=== PATIENT | female | born 1975 | race Caucasian/White ===

== ENCOUNTER 2016-11-14 02:54 | Emergency (ER) | payer SELFPAY ==
[~2016-11-14] VITALS: Ht 165.1 cm; Wt 113.4 kg
[~2016-11-14 02:54] MED LIST: CITA20TA4 PO; DILT120C54; HYDR-2890 PO; LISI20TA PO; LORA0.5T PO; MTP25TSR PO; RNT150T
--- OUTSIDE RECORDS SUMMARY | 2016-11-14 03:03 | XMS REPORT | Continuity of Care Document ---
Author Author [facility] Organization [facility] Address Unknown Phone Unavailable Allergies Active Description Code Type Severity Reaction Onset Reported/Identified Relationship to Patient Clinical Status Yes Lisinopril oral tablet 20 mg Drug Allergy 02/20/2011 Yes hydrochlorothiazide 25 mg tablet Drug Allergy 04/14/2012 Yes hydrochlorothiazide 25 mg tablet Drug Allergy N/A N/A 04/14/2012 Medications Problems Date Dx Coded Attending Type Code Diagnosis Diagnosed By 07/30/2009 034.0 Streptococcal Sore Throat 07/30/2009 KATHARINE COOLEY DO 034.0 Streptococcal Sore Throat 07/30/2009 KATHARINE COOLEY DO 034.0 Streptococcal Sore Throat 07/30/2009 034.0 Streptococcal Sore Throat 07/30/2009 KATHARINE COOLEY DO K 034.0 Streptococcal Sore Throat 02/28/2010 278.01 OBESITY MORBID 02/28/2010 300.00 ANXIETY UNSPEC 02/28/2010 564.1 IRRITABLE BOWEL SYNDROME 02/28/2010 HETAL COOLEY DOA K 278.01 OBESITY MORBID 02/28/2010 HETAL COOLEY DOA K 300.00 ANXIETY UNSPEC 02/28/2010 HETAL COOLEY DOA K 564.1 IRRITABLE BOWEL SYNDROME 02/28/2010 HETAL COOLEY DOA K 278.01 OBESITY MORBID 02/28/2010 HETAL COOLEY DOA K 300.00 ANXIETY UNSPEC 02/28/2010 HETAL COOLEY DOA K 564.1 IRRITABLE BOWEL SYNDROME 02/28/2010 278.01 OBESITY MORBID 02/28/2010 300.00 ANXIETY UNSPEC 02/28/2010 564.1 IRRITABLE BOWEL SYNDROME 02/28/2010 HETAL COOLEY DOA K 278.01 OBESITY MORBID 02/28/2010 HETAL COOLEY DOA K 300.00 ANXIETY UNSPEC 02/28/2010 HETAL COOLEY DOA K 564.1 IRRITABLE BOWEL SYNDROME 03/21/2010 401.1 ESSENTIAL HYPERTENSION BENIGN 03/21/2010 790.29 PREDIABETES (IMPAIRED GLUCOSE TOLERANCE) 03/21/2010 V72.31 Pelvic Exam (internal) 03/21/2010 KATHARINE COOLEY DO K 401.1 ESSENTIAL HYPERTENSION BENIGN 03/21/2010 KATHARINE COOLEY DO K 790.29 PREDIABETES (IMPAIRED GLUCOSE TOLERANCE) 03/21/2010 KATHARINE COOLEY DO K V72.31 Pelvic Exam (internal) 03/21/2010 HETAL COOLEY DOA K 401.1 ESSENTIAL HYPERTENSION BENIGN 03/21/2010 KATHARINE COOLEY DO K 790.29 PREDIABETES (IMPAIRED GLUCOSE TOLERANCE) 03/21/2010 KATHARINE COOLEY DO K V72.31 Pelvic Exam (internal) 03/21/2010 401.1 ESSENTIAL HYPERTENSION BENIGN 03/21/2010 790.29 PREDIABETES (IMPAIRED GLUCOSE TOLERANCE) 03/21/2010 V72.31 Pelvic Exam (internal) 03/21/2010 KATHARINE COOLEY DO K 401.1 ESSENTIAL HYPERTENSION BENIGN 03/21/2010 KATHARINE COOLEY DO K 790.29 PREDIABETES (IMPAIRED GLUCOSE TOLERANCE) 03/21/2010 KATHARINE COOLEY DO V72.31 Pelvic Exam (internal) 08/07/2010 427.81 SINOATRIAL NODE DYSFUNCTION 08/07/2010 KATHARINE COOLEY DO 427.81 SINOATRIAL NODE DYSFUNCTION 08/07/2010 KATHARINE COOLEY DO 427.81 SINOATRIAL NODE DYSFUNCTION 08/07/2010 427.81 SINOATRIAL NODE DYSFUNCTION 08/07/2010 KATHARINE COOLEY DO K 427.81 SINOATRIAL NODE DYSFUNCTION 01/13/2011 796.2 Elevated Blood Pressure Reading Without Diagnosis Of Hypertension 01/13/2011 KATHARINE COOLEY DO 796.2 Elevated Blood Pressure Reading Without Diagnosis Of Hypertension 01/13/2011 KATHARINE COOLEY DO K 796.2 Elevated Blood Pressure Reading Without Diagnosis Of Hypertension 01/13/2011 796.2 Elevated Blood Pressure Reading Without Diagnosis Of Hypertension 01/13/2011 KATHARINE COOLEY DO K 796.2 Elevated Blood Pressure Reading Without Diagnosis Of Hypertension 01/22/2011 530.81 GERD 01/22/2011 786.09 RESPIRATORY ABNORMALITY OTHER 01/22/2011 786.2 COUGH 01/22/2011 786.50 CHEST PAIN 01/22/2011 KATHARINE COOLYE DO K 530.81 GERD 01/22/2011 KATHARINE COOLEY DO K 786.09 RESPIRATORY ABNORMALITY OTHER 01/22/2011 COOLEY DO, KATHARINE K 786.2 COUGH 01/22/2011 COOLEY DO, KATHARINE K 786.50 CHEST PAIN 01/22/2011 COOLEY DO, KATHARINE K 530.81 GERD 01/22/2011 COOLEY DO, KATHARINE K 786.09 RESPIRATORY ABNORMALITY OTHER 01/22/2011 COOLEY DO, KATHARINE K 786.2 COUGH 01/22/2011 COOLEY DO, KATHARINE K 786.50 CHEST PAIN 01/22/2011 530.81 GERD 01/22/2011 786.09 RESPIRATORY ABNORMALITY OTHER 01/22/2011 786.2 COUGH 01/22/2011 786.50 CHEST PAIN 01/22/2011 COOLEY DO, KATHARINE K 530.81 GERD 01/22/2011 COOLEY DO, KATHARINE K 786.09 RESPIRATORY ABNORMALITY OTHER 01/22/2011 COOLEY DO, KATHARINE K 786.2 COUGH 01/22/2011 COOLEY DO, KATHARINE K 786.50 CHEST PAIN 03/19/2011 428.0 CONGESTIVE HEART FAILURE UNSPECIFIED 03/19/2011 COOLEY DO KATHARINE K 428.0 CONGESTIVE HEART FAILURE UNSPECIFIED 03/19/2011 YASIR VALENCIA KATHARINE K 428.0 CONGESTIVE HEART FAILURE UNSPECIFIED 03/19/2011 428.0 CONGESTIVE HEART FAILURE UNSPECIFIED 03/19/2011 COOLEY DO, KATHARINE K 428.0 CONGESTIVE HEART FAILURE UNSPECIFIED 07/17/2011 V81.1 HYPERTENSION SCREENING 07/17/2011 HETAL COOLEY DOA K V81.1 HYPERTENSION SCREENING 07/17/2011 YASIR VALENCIA KATHARINE K V81.1 HYPERTENSION SCREENING 07/17/2011 V81.1 HYPERTENSION SCREENING 07/17/2011 YASIR VALENCIA KATHARINE K V81.1 HYPERTENSION SCREENING 09/22/2012 HETAL COOLEY DOA K V18.11 FAM HX MEN SYNDROME 01/19/2013 YASIR VALENICA KATHARINE K V04.81 FLU SHOT Procedures Code Description [place] [address] ROUTINE VENIPUNCTURE 06/03/2012 82227 A1C (IN-HOUSE) 75666 CMP 06/03/2012 50600 LIPID PANEL 06/03 5924498 GFR CALC (RESULT ONLY) 06/03/2012 84447 VITAMIN D 25-HYDROXY (D2,D3, TOTAL) 06/04/2012 89781 US BREAST ULTRASOUND, LEFT 06/04/2012 2000F BLOOD PRESSURE CHECK 01/19/2013 96780 US BREAST ULTRASOUND, LEFT 01/19/2013 Results Encounters ACCT No. Visit Date/Time Discharge Status Pt. Type Provider Facility Loc./Unit Complaint [id number] 09/03/2012 09:11:00 2012 23:59:59 CLS Outpatient
[2016-11-14] MEDS ORDERED: TETANUS,DIPTH,PERTUSS P/F (BOOSTRIX) 0.5 ML VIAL IM ONE (03:15)
[2016-11-14] MEDS ORDERED: TRIM/SULFAMETH 160/800 (SEPTRA DS) TAB PO ONE (03:15)
[2016-11-14] MEDS ORDERED: SULF1TAB35 PO (03:19)
--- NOTE | 2016-11-14 03:19 | ED General ---
General Chief Complaint: Skin/Wound Problems Stated Complaint: RT ELBOW INFECTION,POSS BUG BITE Allergies and Home Medications Allergies Coded Allergies: NKANo Known Allergies (Unverified Allergy, Mild, 02/26/09) Home Medications Lisinopril 20 Mg Tablet, 1 EACH PO DAILY, #30 Ref 0 Prescribed by: CELINA CARDONA on 01/21/11 0802 Metoprolol Succinate 25 Mg Tab, 25 MG PO DAILY, (Reported) Past Hegchwr-Tvogma-Oryldt Hx Patient Social History Alcohol Use: Occasionally Uses Recreational Drug Use: No Smoking Status: Never a Smoker Recent Foreign Travel: No Contact w/Someone Who Travel: No Surgeries HX Surgeries: Yes Surgeries: Section Respiratory Hx Respiratory Disorders: No Cardiovascular Hx Cardiac Disorders: Yes Cardiac Disorders: Hypertension Neurological Hx Neurological Disorders: No Genitourinary Hx Genitourinary Disorders: No Musculoskeletal Hx Musculoskeletal Disorders: No Endocrine Hx Endocrine Disorders: No HEENT HX ENT Disorders: No Cancer Hx Cancer: No Psychosocial Hx Psychiatric Problems: Yes Behavioral Health Disorders: Anxiety Physical Exam Vital Signs Capillary Refill : Progress/Results/Core Measures Results/Orders My Orders Orders - GIANCARLO ARMSTRONG MD Sulfamethoxazole/Trimet Ds Tab (Bactrim (11/14/16 03:15) Dipht,Pertuss(Acell),Tet Adult (Boostrix (11/14/16 03:15) Departure Impression Impression: Primary Impression: Spider bite Qualified Codes: T63.301A - Toxic effect of unspecified spider venom, accidental (unintentional), initial encounter Disposition: 01 HOME, SELF-CARE Condition: Improved Departure-Patient Inst. Decision time for Depature: 03:10 Referrals: [facility] (PCP/Family) Primary Care Physician Patient Instructions: Spider Bites Add. Discharge Instructions: Complete your antibiotics as prescribed. Do not place anything on the wound topically. You may cover with a Band-Aid if necessary. Return to care if symptoms worsen or are not improving over the next couple of weeks. All discharge instructions reviewed with patient and/or family. Voiced understanding. Scripts Sulfamethoxazole/Trimethoprim (Bactrim Ds Tablet) 1 Each Tablet 1 EACH PO BID, #14 TAB Prov: GIANCARLO ARMSTRONG MD 11/14/16 GIANCARLO ARMSTRONG MD Nov 14, 2016 03:19
[2016-11-14 03:25] VITALS: BP 142/91
== END 2016-11-14 03:25 | disposition home or self-care (01) ==
LOC: EDUNIT# 02:54 → ER 02:59
DX: S50.361A Insect bite (nonvenomous) of right elbow, initial encounter (principal); I10 Essential (primary) hypertension; F41.9 Anxiety disorder, unspecified; W57.XXXA Bitten or stung by nonvenomous insect and other nonvenomous arthropods, initial encounter
CPT/HCPCS: 90715; 99284

== ENCOUNTER 2017-12-06 12:35 | Emergency (ER) | payer SELFPAY ==
[~2017-12-06] VITALS: Ht 165.1 cm; Wt 117.9 kg
[~2017-12-06 12:35] MED LIST changes: +SULF1TAB35 PO
[2017-12-06] MEDS ORDERED: LISINOPRIL (12:48)
[2017-12-06] MEDS ORDERED: AMOX-358 PO (13:13)
--- NOTE | 2017-12-06 13:13 | ED General ---
General Chief Complaint: General Problems/Pain Stated Complaint: FACE SWOLLEN,JAW SWOLLEN PAINFULL Nursing Triage Note: AMB TO ROOM REPORTS WOKE UP THIS AM NOTICED SWELLING IN L SIDE OF JAW. KNOWS SHE HAS BAD TEETH. Nursing Sepsis Screen: No Definite Risk Source of Information: Patient Exam Limitations: No Limitations History of Present Illness Date Seen by Provider: Dec 06, 2017 Time Seen by Provider: 12:50 Initial Comments Patient is a 42-year-old female who presents to emergency room with complaints of left lower side swelling to her face that she woke up with this morning and abscessed tooth the left lower jaw. She denies fever, chills, or pain. Timing/Duration: 4-6 Hours Associated Systoms: Denies Symptoms Allergies and Home Medications Allergies Coded Allergies: NKANo Known Allergies (Unverified Allergy, Mild, 02/26/09) Home Medications Amoxicillin/Potassium Clav 1 Each Tablet, 1 EACH PO BID Prescribed by: KATHERIN CHU on 12/06/17 1313 Patient Home Medication List Home Medication List Reviewed: Yes Review of Systems Constitutional: see HPI; No chills, No fever EENTM: see HPI, dental problems (Facical swelling) All Other Systems Reviewed Negative Unless Noted: Yes Past Nvwejiv-Ipgvnx-Hhqmnb Hx Past Med/Social Hx: Reviewed Nursing Past Med/Soc Hx Patient Social History Alcohol Use: Occasionally Uses Recreational Drug Use: No Smoking Status: Never a Smoker Recent Foreign Travel: No Contact w/Someone Who Travel: No Recent Infectious Disease Expo: No Past Medical History Surgeries: Yes Section Respiratory: No Cardiac: Yes Hypertension Neurological: No Musculoskeletal: No Endocrine: No Cancer: No Psychosocial: Yes Anxiety Integumentary: No Family Medical History Reviewed Nursing Family Hx Physical Exam Vital Signs Vital Signs - First Documented 12/06/17 12:39 Temp 97.1 Pulse 93 Resp 18 B/P (MAP) 192/111 (138) Pulse Ox 97 O2 Delivery Room Air Capillary Refill : Less Than 3 Seconds Height, Weight, BMI Height: 5'5.00" Weight: 260lbs. oz. 117.692711ah; BMI Method:Stated General Appearance: No Apparent Distress, WD/WN HEENT: Other (Facial swelling and dental carries/fractured teeth as noted in images.) Neck: Full Range of Motion, Normal Inspection, Non Tender, Supple Respiratory: Chest Non Tender, Lungs Clear, Normal Breath Sounds, No Accessory Muscle Use, No Respiratory Distress Cardiovascular: Regular Rate, Rhythm, No Edema, No Gallop, No JVD, No Murmur, Normal Peripheral Pulses Skin: Normal Color, Warm/Dry Progress/Results/Core Measures Suspected Sepsis Recent Fever Within 48 Hours: No Infection Criteria Present: None New/Unexplained Altered Menta: No Sepsis Screen: No Definite Risk SIRS Temperature:97.1 Pulse: 93 Respiratory Rate: 18 Blood Pressure 192 /111 Mean: 138 Results/Orders My Orders Orders - KATHERIN CHU Lisinopril Tablet (Zestril Tablet) (12/06/17 13:15) Vital Signs/I&O Capillary Refill : Less Than 3 Seconds Blood Pressure Mean: 138 Progress Note : Progress Note I have seen and evaluated the patient. She is established at [facility] and agrees to follow up with there dental clinic within one week for a recheck and further treatment. I have prescribed Augmentin for the infection. The patient agrees with plans for discharge and return precautions were given. The patients blood pressure was elevated at this visit and she states that she did not take her blood pressure medication today and refused the lisinopril that I ordered. Departure Impression Primary Impression: Dental abscess Disposition: HOME, SELF-CARE Condition: Stable/Unchanged Departure-Patient Inst. Decision time for Depature: 13:11 Referrals: [facility] (PCP/Family) Primary Care Physician REJI STODDARD DDS Patient Instructions: ABSCESS Add. Discharge Instructions: Take medication as directed. Follow up with counts include [address] beds at the [facility] within 1 week for recheck. Follow-up with Dr. dunne within 1 week for recheck. Call first thing tomorrow morning for appointment times. Return back to the emergency room for any increased pain, fevers, or any other concerns as needed. All discharge instructions reviewed with patient and/or family. Voiced understanding. Scripts Amoxicillin/Potassium Clav (Augmentin 875-125 Tablet) 1 Each Tablet 1 EACH PO BID for 10 Days, #20 TAB Prov: KATHERIN CHU 12/06/17 Images Head/Face 1 - Swelling Mouth/Nose 1 - Caries, Fracture Tooth 2 - Caries, Fracture Tooth, Swelling KATHERIN CHU Dec 06, 2017 13:13
[2017-12-06] MEDS ORDERED: lisINopril 10 MG (PRINIVIL) TABLET PO ONE (13:15)
[2017-12-06 13:22] VITALS: BP 192/111
--- OUTSIDE RECORDS SUMMARY | 2017-12-07 09:24 | XMS REPORT | Continuity of Care Document ---
Author Author [facility] Address Unknown Phone Unavailable Allergies Active Description Code Type Severity Reaction Onset Reported/Identified Relationship to Patient Clinical Status Yes NKANo Known Allergies NKA Miscellaneous Allergy Mild N/A 02/26/2009 Yes Lisinopril oral tablet 20 mg Drug Allergy 02/20/2011 Yes hydrochlorothiazide 25 mg tablet Drug Allergy 04/14/2012 Yes hydrochlorothiazide 25 mg tablet Drug Allergy N/A N/A 04/14/2012 Medications There is no data. Problems Date Dx Coded Attending Type Code Diagnosis Diagnosed By 07/30/2009 034.0 Streptococcal Sore Throat 07/30/2009 KATHARINE COOLEY DO K 034.0 Streptococcal Sore Throat 07/30/2009 HETAL COOLEY DOA K 034.0 Streptococcal Sore Throat 07/30/2009 034.0 Streptococcal Sore Throat 07/30/2009 HETAL COOLEY DOA K 034.0 Streptococcal Sore Throat 02/28/2010 278.01 OBESITY MORBID 02/28/2010 300.00 ANXIETY UNSPEC 02/28/2010 564.1 IRRITABLE BOWEL SYNDROME 02/28/2010 COOLEY HETAL VALENCIAA K 278.01 OBESITY MORBID 02/28/2010 YASIR VALENCIA KATHARINE K 300.00 ANXIETY UNSPEC 02/28/2010 HETAL COOLEY DOA K 564.1 IRRITABLE BOWEL SYNDROME 02/28/2010 YASRI VALENCIA KATHARINE K 278.01 OBESITY MORBID 02/28/2010 COOLEY DO KATHARINE K 300.00 ANXIETY UNSPEC 02/28/2010 COOLEY DO KATHARINE K 564.1 IRRITABLE BOWEL SYNDROME 02/28/2010 278.01 OBESITY MORBID 02/28/2010 300.00 ANXIETY UNSPEC 02/28/2010 564.1 IRRITABLE BOWEL SYNDROME 02/28/2010 COOLEY DO KATHARINE K 278.01 OBESITY MORBID 02/28/2010 COOLEY DO KATHARINE K 300.00 ANXIETY UNSPEC 02/28/2010 HETAL COOLEY DOA K 564.1 IRRITABLE BOWEL SYNDROME 03/21/2010 401.1 ESSENTIAL HYPERTENSION BENIGN 03/21/2010 790.29 PREDIABETES ( IMPAIRED GLUCOSE TOLERANCE) 03/21/2010 V72.31 Pelvic Exam ( internal) 03/21/2010 KATHARINE COOLEY DO 401.1 ESSENTIAL HYPERTENSION BENIGN 03/21/2010 KATHARINE COOLEY DO K 790.29 PREDIABETES (IMPAIRED GLUCOSE TOLERANCE) 03/21/2010 KATHARINE COOLEY DO K V72.31 Pelvic Exam (internal) 03/21/2010 KATHARINE COOLEY DO 401.1 ESSENTIAL HYPERTENSION BENIGN 03/21/2010 KATHARINE COOLEY DO K 790.29 PREDIABETES (IMPAIRED GLUCOSE TOLERANCE) 03/21/2010 KATHARINE COOLEY DO K V72.31 Pelvic Exam (internal) 03/21/2010 401.1 ESSENTIAL HYPERTENSION BENIGN 03/21/2010 790.29 PREDIABETES ( IMPAIRED GLUCOSE TOLERANCE) 03/21/2010 V72.31 Pelvic Exam ( internal) 03/21/2010 KATHARINE COOLEY DO 401.1 ESSENTIAL HYPERTENSION BENIGN 03/21/2010 KATHARINE COOLEY DO 790.29 PREDIABETES (IMPAIRED GLUCOSE TOLERANCE) 03/21/2010 KATHARINE COOLEY DO V72.31 Pelvic Exam (internal) 08/07/2010 427.81 SINOATRIAL NODE DYSFUNCTION 08/07/2010 KATHARINE COOLEY DO 427.81 SINOATRIAL NODE DYSFUNCTION 08/07/2010 KATHARINE COOLEY DO 427.81 SINOATRIAL NODE DYSFUNCTION 08/07/2010 427.81 SINOATRIAL NODE DYSFUNCTION 08/07/2010 KATHARINE COOLEY DO 427.81 SINOATRIAL NODE DYSFUNCTION 01/13/2011 796.2 Elevated [...] COUGH 01/22/2011 786.50 CHEST PAIN 01/22/2011 KATHARINE COOLEY DO 530.81 GERD 01/22/2011 COOLEY DO, KATHARINE K [...] 01/22/2011 786.50 CHEST PAIN 01/22/2011 COOLEY DO, KATHARIEN K 530.81 GERD 01/22/2011 COOLEY DO, KATHARINE K 786.09 RESPIRATORY ABNORMALITY OTHER 01/22/2011 COOLEY DO, KATHARINE K 786.2 COUGH 01/22/2011 COOLEY DO, KATHARINE K 786.50 CHEST PAIN 03/19/2011 428.0 CONGESTIVE HEART FAILURE UNSPECIFIED 03/19/2011 COOLEY DO, KATHARINE K 428.0 CONGESTIVE HEART FAILURE UNSPECIFIED 03/19/2011 COOLEY DO, KATHARINE K 428.0 CONGESTIVE HEART FAILURE UNSPECIFIED 03/19/2011 428.0 CONGESTIVE HEART FAILURE UNSPECIFIED 03/19/2011 COOLEY DO, KATHARINE K 428.0 CONGESTIVE HEART FAILURE UNSPECIFIED 07/17/2011 V81.1 HYPERTENSION SCREENING 07/17/2011 COOLEY DO, KATHARINE K V81.1 HYPERTENSION SCREENING 07/17/2011 COOLEY DO, KATHARINE K V81.1 HYPERTENSION SCREENING 07/17/2011 V81.1 HYPERTENSION SCREENING 07/17/2011 COOLEY DO, KATHARINE K V81.1 HYPERTENSION SCREENING 06/10/2012 Ot 530.81 ESOPHAGEAL REFLUX 06/10/2012 Ot 786.59 CHEST PAIN NEC 09/22/2012 COOLEY DO, KATHARINE K V18.11 FAM HX MEN SYNDROME 01/19/2013 COOLEY DO, KATHARINE K V04.81 FLU SHOT 11/14/2016 Ot 729.5 PAIN IN LIMB 11/14/2016 Ot 782.2 LOCAL SUPRFICIAL SWELLNG 11/14/2016 Ot 610.0 SOLITARY CYST OF BREAST 11/14/2016 COOLEY DO, KATHARINE K Ot 793.80 UNSPEC ABNORMAL MAMMOGRAM 11/14/2016 GIANCARLO ARMSTRONG MD Ot F41.9 ANXIETY DISORDER, UNSPECIFIED 11/14/2016 GIANCARLO ARMSTRONG MD Ot I10 ESSENTIAL (PRIMARY) HYPERTENSION 11/14/2016 GIANCARLO ARMSTRONG MD Ot L08.9 LOCAL INFECTION OF THE SKIN AND SUBCUTAN 11/14/2016 GIANCARLO ARMSTRONG MD Ot S50.361A INSECT BITE (NONVENOMOUS) OF RIGHT ELBOW 11/14/2016 GIANCARLO ARMSTRONG MD Ot W57.XXXA BIT/STUNG BY NONVENOM INSECT OTH NONVE 11/14/2016 Ot 729.5 PAIN IN LIMB 11/14/2016 Ot 782.2 LOCAL SUPRFICIAL SWELLNG 11/14/2016 Ot 610.0 SOLITARY CYST OF BREAST 11/14/2016 KATHARINE COOLEY DO Ot 793.80 UNSPEC ABNORMAL MAMMOGRAM 12/25/2016 Ot 729.5 PAIN IN LIMB 12/25/2016 Ot 782.2 LOCAL SUPRFICIAL SWELLNG 12/25/2016 Ot 610.0 SOLITARY CYST OF BREAST 12/25/2016 KATHARINE COOLEY DO Ot 793.80 UNSPEC ABNORMAL MAMMOGRAM Procedures Code Description [place] [address] ROUTINE VENIPUNCTURE 06/03/2012 59302 A1C (IN-HOUSE) 06/03/2012 72264 CMP 06/03/2012 65908 LIPID PANEL 06/03/2012 [id number] GFR CALC (RESULT ONLY) 06/03/2012 43057 VITAMIN D 25-HYDROXY (D2,D3 , TOTAL) 06/04/2012 56961 US BREAST ULTRASOUND, LEFT 06/04/2012 2000F BLOOD PRESSURE CHECK 01/19/2013 70396 US BREAST ULTRASOUND, LEFT 01/19/2013 Results Test Result Range TSH - 11/12/17 08:49 TSH 1.02 mIU/L NRG Encounters ACCT No. Visit Date/Time Discharge Status Pt. Type Provider Facility Loc./Unit Complaint [id number] 01/19/2013 10:06:00 01/19/2013 23:59:59 CLS Outpatient KATHARINE COOLEY DO [id number] 06/03/2012 08:23:00 06/03/2012 23:59:59 CLS Outpatient KATHARINE COOLEY DO [id number] 04/14/2012 14:49:00 04/14/2012 23:59:59 [place] [id number] 07/17/2011 10:24:00 07/17/2011 23:59:59 CLS Outpatient [id number] 09/22/2012 12:16:00 Document Registration [id number] 11/14/2016 02:59:00 11/14/2016 03:25:00 DIS Emergency NATHANIEL BLEDSOE, GIANCARLO Kaufman [facility] RT ELBOW INFECTION, POSS BUG BITE [id number] 09/03/2012 09:11:00 09/03/2012 23:59:59 CLS Outpatient KATHARINE COOLEY DO [facility] RAD FOLLOW UP SONO FOR LEFT BREAST LUMP [id number] 06/10/2012 15:49:00 Document Registration [id number] 11/18/2011 09:55:00 Document Registration [id number] 09/15/2011 08:49:00 Document Registration [id number] 11/25/2017 16:00:00 11/25/2017 23:59:59 CLS Outpatient JAY ROSAS [facility] [id number] 11/12/2017 08:00:00 Document Registration
== END 2017-12-06 13:15 | disposition home or self-care (01) ==
LOC: EDUNIT# 12:35 → ER 12:37
DX: K04.7 Periapical abscess without sinus (principal); I10 Essential (primary) hypertension; F41.9 Anxiety disorder, unspecified; Z87.59 Personal history of other complications of pregnancy, childbirth and the puerperium
CPT/HCPCS: 99281